=== PATIENT | male | born 1975 ===

== ENCOUNTER 2024-12-23 18:08 | Emergency (ER) | payer BC, OTHER ==
[~2024-12-23] VITALS: Ht 170.2 cm; Wt 61.4 kg
[2024-12-23 18:12] VITALS: BP 128/82; PULSE 60; RESP 16; TEMP 98; O2SAT 96
== END 2024-12-23 18:38 ==
LOC: ER 18:10
DX: Z02.89 Encounter for other administrative examinations (principal); V89.2XXA Person injured in unspecified motor-vehicle accident, traffic, initial encounter; Y92.410 Unspecified street and highway as the place of occurrence of the external cause; Y92.89 Other specified places as the place of occurrence of the external cause; Y99.8 Other external cause status
CPT/HCPCS: 99283